=== PATIENT | male | born 1965 | race Caucasian/White ===

== ENCOUNTER 2020-03-17 07:58 | Outpatient (CLI) | payer OTHER ==
--- NOTE | 2020-03-17 09:23 | ULT ---
ULTRASOUND LIVER WITH WALLS SCALE AND COLOR FLOW AND SPECTRAL DOPPLER IMAGING: HISTORY: COLLINS. FINDINGS: The liver is enlarged measuring 22 cm in length. The liver demonstrates increased echogenicity consi stent with fatty infiltration. No focal mass or intrahepatic ductal dilatation is seen. The spleen is mildly enlarged measuring 13.8 cm. No gallstones, gallbladder wall thickening, or pericholecystic fluid is seen. The common duct measures up to 7 mm in diameter. The visualized portions of the gabriel creas are normal. The free fluid is seen. There is normal flow and spectral waveforms in the hepatic, portal, and splenic vasculature. No free fluid is seen. IMPRESSION: 1. Hepatomegaly with steatosis. 2. Mild Splenomegaly. POS: OFF
== END 2020-03-17 07:59 | disposition home or self-care (01) ==
LOC: BICULT 07:58
PROVIDERS: ATTEND Physician Assistant Medical
DX: K75.81 Nonalcoholic steatohepatitis (NASH) (principal); R16.2 Hepatomegaly with splenomegaly, not elsewhere classified
CPT/HCPCS: 76705

== ENCOUNTER 2020-11-03 08:49 | Outpatient (CLI) | payer OTHER | END 2020-11-03 08:50 | disposition home or self-care (01) | LOC: BICULT 08:49 | PROVIDERS: ATTEND Physician Assistant Medical | DX: K75.81 Nonalcoholic steatohepatitis (NASH) (principal); K76.0 Fatty (change of) liver, not elsewhere classified; R16.2 Hepatomegaly with splenomegaly, not elsewhere classified | CPT/HCPCS: 76705 ==

== ENCOUNTER 2022-01-29 10:44 | Outpatient (CLI) | payer OTHER | END 2022-01-29 10:45 | disposition home or self-care (01) | LOC: BICULT 10:44 | PROVIDERS: ATTEND Physician Assistant Medical | DX: K76.0 Fatty (change of) liver, not elsewhere classified (principal); R16.2 Hepatomegaly with splenomegaly, not elsewhere classified; K82.8 Other specified diseases of gallbladder; K83.8 Other specified diseases of biliary tract | CPT/HCPCS: 76705 ==

== ENCOUNTER 2022-08-23 08:39 | Outpatient (CLI) | payer OTHER | END 2022-08-23 08:40 | disposition home or self-care (01) | LOC: BICULT 08:39 | PROVIDERS: ATTEND Physician Assistant Medical | DX: K75.81 Nonalcoholic steatohepatitis (NASH) (principal); R16.2 Hepatomegaly with splenomegaly, not elsewhere classified; K82.8 Other specified diseases of gallbladder; R93.2 Abnormal findings on diagnostic imaging of liver and biliary tract | CPT/HCPCS: 76705 ==

== ENCOUNTER 2024-04-06 05:48 | Day surgery (SDC) | payer OTHER ==
[2024-04-03 12:01] VITALS: BMI 40.0
[2024-04-06] MEDS ORDERED: PROPOFOL 40 ML ONE (07:11)
[2024-04-06] MEDS ORDERED: Lidocaine 1% PF 5 ML VIAL ONE (07:11)
[2024-04-06] MEDS ORDERED: GLYCOPYRROLATE/PF 0.2 MG/ML VIAL ONE (07:16)
[2024-04-06] MEDS ORDERED: PROPOFOL 20 ML ONE ×2 (07:54→08:14)
[2024-04-06] MEDS ORDERED: ePHEDrine Sulfate 50 MG/10 ML VIAL ONE (07:59)
== END 2024-04-06 09:39 | disposition home or self-care (01) ==
LOC: SDC 05:48
PROVIDERS: ATTEND Internal Medicine Gastroenterology
PROC: 0DJD8ZZ Inspection of Lower Intestinal Tract, Via Natural or Artificial Opening Endoscopic (ICD-10-PCS; principal; 2024-04-06)
PROC: 0DJ08ZZ Inspection of Upper Intestinal Tract, Via Natural or Artificial Opening Endoscopic (ICD-10-PCS; principal; 2024-04-06)
DX: Z12.11 Encounter for screening for malignant neoplasm of colon (principal); K74.60 Unspecified cirrhosis of liver; I85.10 Secondary esophageal varices without bleeding; D50.9 Iron deficiency anemia, unspecified; Z86.010 Personal history of colon polyps; K76.6 Portal hypertension; K31.89 Other diseases of stomach and duodenum; I10 Essential (primary) hypertension; Z79.899 Other long term (current) drug therapy; Z98.890 Other specified postprocedural states; Z88.1 Allergy status to other antibiotic agents
CPT/HCPCS: J2704; J3490